=== PATIENT | female | born 1955 | race Caucasian/White ===

== ENCOUNTER 2016-08-26 17:59 | Emergency (ER) | payer SELFPAY ==
--- NOTE | 2016-08-26 19:51 | DIAGNOSTIC IMAGING REPORT ---
PROCEDURE: XR CHEST 1 VIEW INDICATION: Extremity weakness. History breast surgery. TECHNIQUE: Portable AP view (19 3 hours). COMPARISON: None. FINDINGS: Allowing for overlying wires and electrodes, lungs are clear. Heart and mediastinum are normal. Soft tissues of the thorax are normal and there is no evidence metal foreign body. Status post resection of the left distal clavicle. Thorax is otherwise normal. IMPRESSION: 1. Negative chest.
--- NOTE | 2016-08-26 19:58 | DIAGNOSTIC IMAGING REPORT ---
PROCEDURE: XR LUMBAR SPINE 2 OR 3 VIEWS INDICATION: LOWER EXTERMITY NUMBNESS TECHNIQUE: Three views. COMPARISON: None. FINDINGS: Osseous structures are osteopenic. There is marked lucency of the T12 vertebral body with loss of cortical margins. In addition, there is an adjacent 50% compression fracture of the L1 vertebral body. There are moderate degenerative changes of the lower lumbar facet joints. IMPRESSION: 1. Osteopenia. 2. Lucency of the T12 vertebral body with loss of cortical margins, with an adjacent 50% fracture of the L1 vertebral body. Findings suspicious for underlying pathologic neoplastic process. CT lumbar spine is recommended to further evaluate. 3. Findings discussed with Dr. Geoff Bill.
--- NOTE | 2016-08-26 20:37 | DIAGNOSTIC IMAGING REPORT ---
PROCEDURE: CT LUMBAR SPINE W/O CONTRAST INDICATION: Back pain. Lower extremity weakness. TECHNIQUE: Noncontrast axial images with sagittal and coronal reformations. COMPARISON: Comparison made radiographs of the lumbar spine earlier today (08/26/2016). FINDINGS: There is marked osteopenia of the osseous structures. Radiographs earlier today suggested a lytic lesion of the T12 vertebral body, although this appears to be a reflection of osteoporosis. There is a 50% subacute or old compression fracture of the L1 vertebral body. No evidence of canal compromise. L1-2: Mild facet disease. L2-3: Mild facet disease. L3-4: Mildly bulging disc and facet disease. L4-5: Mildly bulging disc with mild to moderate facet disease. L5-S1: Mild to moderate facet disease. Disc is normal. IMPRESSION: 1. Osteopenia with probable osteoporosis. 2. Mild to moderate degenerative changes of the lumbar spine. 3. No evidence of lytic lesion of the T12 vertebral bodies (as suggested on radiographs earlier today). 4. There is a 50% older subacute compression fracture of the L1 vertebral body. 5. No evidence of disc herniation and no evidence of canal compromise. 6. Findings discussed with Dr. Geoff Bill. All CT scans at this facility use dose modulation, iterative reconstruction, and/or weight-based dosing when appropriate to reduce radiation dose to as low as reasonably achievable.
--- NOTE | 2016-08-26 21:07 | ED CLINICAL REPORT ---
Clinical Report - Physicians/Mid Levels [facility] [address] [place] [address] 08/26/2016 18:00 Patient: CARYN TA I Time Seen: 18:27. Arrived- By private vehicle. Historian- patient. HISTORY OF PRESENT ILLNESS Chief Complaint: WEAKNESS and DIFFICULTY STANDING and WALKING. This started today and is still present. It was abrupt in onset and has been constant. The patient has had new onset of weakness of the right leg and left leg. She has had new onset of numbness of the right leg (moderate) and left leg (moderate). No impaired speech or swallowing or visual disturbance. She has had difficulty walking. Usually is alert and oriented X3. (she says that she will occasionally use a cane). She usually walks without assistance. (Patient reports that she took a nap this afternoon. Prior to that she was able to ambulate as she usually does. However, when she woke she said that her legs felt "numb" and that she has not been able to stand up. She has a history of chronic low back pain and has had prior surgery there and says that she has had an upper sacral fracture.). REVIEW OF SYSTEMS No chills, fever, sweats, calf pain or chest pain. No cough, difficulty breathing, pedal edema, palpitations or abdominal pain. No constipation, diarrhea, nausea, vomiting or urinary problems. The patient has had back pain (chronically). All systems otherwise negative, except as recorded above. PAST HISTORY ( Primary physician (Adalgisa)). Problems: Thyroid Disease. Abdominal Pain. Back Pain. Chronns. Gastroesophageal Reflux Disease. Additional Surgeries: "Stomach wrap for bleeding". Appendectomy. Back Surgery. Colonoscopy. Endometriosis . Medications: Triliptal 150mg day . Levoxyl Oral 50 mcg, daily. Oxycodone 5 mg 4 times a day . Allergies: Codeine. PCN. SOCIAL HISTORY Current every day light tobacco smoker (cigarette)- less than 1/2 a pack per day. No alcohol use or drug use. FAMILY HISTORY No significant family medical history. ADDITIONAL NOTES The nursing notes have been reviewed. PHYSICAL EXAM Vital Signs: 08/26/2016 18:20 BP: 105/60. HR: 52. RR: 18. O2 saturation: 99%. Temp: 97.4 F. Pain level now: 10/18. Appearance: Alert. Eyes: Pupils equal, round and reactive to light. ENT: Pharynx normal. Neck: Normal inspection. Neck supple. CVS: Bradycardia. Heart sounds normal. Respiratory: No respiratory distress. Breath sounds normal. Abdomen: Soft and nontender. No organomegaly. Back: Normal inspection. Rectal: Abnormal digital exam: (she had a normal perianal wink but mildly decreased anal sphincter tone. A female industrial controller was present during the exam). Extremities: Extremities exhibit normal ROM. No calf tenderness. No lower extremity edema. Neuro: Alert. Speech normal. Cranial nerves normal (as tested). No facial weakness. She has had localized weakness of the right leg (severe) and left leg (severe). Sensory deficit present. Altered sensation to light touch on the right and left leg. Altered sensation to pinprick on the left leg. LABS, X-RAYS, AND EKG EKG: Rate: 54. Left axis deviation. Prior EKG unavailable. The study has been independently viewed by me. LS-Spine X-rays: (IMPRESSION: 1. Osteopenia. 2. Lucency of the T12 vertebral body with loss of cortical margins, with an adjacent 50% fracture of the L1 vertebral body. Findings suspicious for underlying pathologic neoplastic process. CT lumbar spine is recommended to further evaluate.). The X-rays were interpreted contemporaneously by me and discussed with the radiologist. Chest X-ray: (IMPRESSION: 1. Negative chest.). The X-rays were interpreted by the radiologist and contemporaneously by me. CT L-Spine: Note- IMPRESSION: 1. Osteopenia with probable osteoporosis. 2. Mild to moderate degenerative changes of the lumbar spine. 3. No evidence of lytic lesion of the T12 vertebral bodies (as suggested on radiographs earlier today). 4. There is a 50% older subacute compression fracture of the L1 vertebral body. 5. No evidence of disc herniation and no evidence of canal compromise. The study was interpreted contemporaneously by me and discussed with the radiologist. Laboratory Tests: UA-Culture if indicated: (LISA: 08/26/2016 19:10) ( MsgRcvd 08/26/2016 19:47) Final results Test Result Flag Units (Reference) URINE COLOR YELLOW URINE APPEARANCE CLEAR URINE GLUCOSE NEGATIVE (NEGATIVE) URINE BILIRUBIN NEGATIVE (NEGATIVE) URINE KETONE NEGATIVE (NEGATIVE) URINE SPECIFIC GRAVITY 1.025 (1.010-1.030) URINE PH 6.0 (5.0-8.0) URINE PROTEIN NEGATIVE (NEGATIVE) URINE UROBILINOGEN 1.0 EU/dL (0.2-1.0) URINE NITRITE NEGATIVE (NEGATIVE) URINE BLOOD NEGATIVE (NEGATIVE) URINE LEUK ESTERASE NEGATIVE (NEGATIVE) URINE RBC RARE rbc/hpf (0-1) URINE WBC 0-1 wbc/hpf (0-1) URINE EPITHELIAL CELLS 0-1 EPI/hpf (0-5) URINE BACTERIA NONE SEEN (NONE SEEN) URINE COMMENT CULT NOT INDICATED URINE CULTURES ARE SET-UP BASED ON THE FOLLOWING CRITERIA:POSITIVE NITRITEPOSITIVE LEUKOCYTE ESTERASEGREATER THAN 10 WHITE BLOOD CELLSMODERATE (2+) OR GREATER BACTERIA CBC w Diff: (LISA: 08/26/2016 18:53) ( [facility] 08/26/2016 19:28) Final results Test Result Flag Units (Reference) WHITE BLOOD COUNT 3.5 L K/uL (4.5-11.5) RED BLOOD COUNT 4.55 M/uL (4.00-5.20) HEMOGLOBIN 13.3 gm/dL (12.0-16.0) HEMATOCRIT 39.4 % (36.0-46.0) MEAN CELL VOLUME 87 fL (80-100) MEAN CORPUSCULAR HGB 29 pg (26-34) MEAN CORPUSCULAR HGB CONC 34 g/dL (31-37) RED CELL DISTRIBUTION WIDTH 13.3 % (11.6-14.8) PLATELET COUNT 161 K/uL (150-400) LYMPH % 37.4 % (25-40) MONO % 3.2 % (3-14) GRANULOCYTE % 59.4 (53-90) CMP: (LISA: 08/26/2016 18:40) ( [facility] 08/26/2016 19:11) Final results Test Result Flag Units (Reference) GLUCOSE 89 mg/dL (70-110) BUN 14 mg/dL (7-18) CREATININE 0.8 mg/dL (0.6-1.3) Estimated GFR >60 mL/min Estimated GFR- >60 mL/min Note: Persistent reduction over 3 months in eGFR<60 mL/min/1.73 m2 defines CKD. Patients with eGFR values>=60 mL/min/1.73 m2 may also have CKD if evidence ofpersistent proteinuria. Additional information may be foundat www.[email or web address].org. SODIUM 141 mmol/L (136-145) POTASSIUM 4.1 mmol/L (3.5-5.1) CHLORIDE 105 mmol/L (98-107) CARBON DIOXIDE 31 mmol/L (21-32) CALCIUM 9.0 mg/dL (8.5-10.1) TOTAL PROTEIN 6.6 g/dL (6.4-8.2) ALBUMIN 3.5 g/dL (3.3-5.0) BILIRUBIN, TOTAL 0.5 mg/dL (0.0-1.0) ALKALINE PHOSPHATASE 87 U/L (46-116) AST (SGOT) 16 U/L (15-37) ALT (SGPT) 19 U/L (12-78) LIPASE 95 U/L (73-393) AMYLASE 34 U/L (25-115) CPK 38 U/L (24-260) TROPONIN I <0.05 ng/mL (0.00-1.5) TROPONIN REFERENCE RANGE:<0.1 NEGATIVE0.1-1.5 INDETERMINANT>1.5 POSITIVE . PROGRESS AND PROCEDURES Course of Care: I discussed the case with Dr. Brianna Sheridan at [place]. We initially tried to arrange for the patient to be evaluated at [facility] however they do not have MRI available this evening and they do not have a neurologic service available. Dr. Sheridan has agreed to accept the patient in transfer to the [place] emergency room for further evaluation and treatment of the patient. Patient/family counseled. Old medical records reviewed. Disposition: Transferred. CLINICAL IMPRESSION Acute weakness of the right lower extremity and left lower extremity. (Electronically signed by Geoff Bill MD 08/28/2016 9:49)
--- NOTE | 2016-08-26 21:07 | ED NURSING NOTES ---
Clinical Report - Nurses [facility] [address] [place] [address] 08/26/2016 18:00 Patient: CARYN TA I TRIAGE Acuity: LEVEL 3. Chief Complaint: WEAKNESS, NAUSEA and BACK PAIN. Alert. No acute distress. SEPSIS SCREEN: Sepsis Screen. Negative (no infection suspected/documented). --18:26 Rachna Nava R.N. 18:20 08/26/16. BP: 105/60. HR: 52. RR: 18. O2 saturation: 99% on room air. Temp: 97.4 F (oral). Pain level now: 10/18. --18:26 Rachna Nava R.N. Weight: 60.7 kg stated. Height/Length: 65 inches Per Patient. BMI: 22.3. --18:24 Rachna Nava R.N. Medications Oxycodone 5 mg 4 times a day . --18:21 Rachna Nava R.N. Levoxyl Oral 50 mcg, daily. --18:21 Rachna Nava R.N. Triliptal 150mg day . --18:21 Rachna Nava R.N. Medication/allergy information source: the patient. --18:26 Rachna Nava R.N. Allergies Codeine. PCN. --18: Rachna Nava R.N. History Arrived by private vehicle, and accompanied by spouse. Primary physician (Adalgisa). This started today. ( Pt reports she woke up this afternoon and is unable to move her legs. Pt states she was able to walk normally before she went to sleep.). Treatment ASSISTANT SURVEYOR: None. PAST MEDICAL HX: Immunizations: up-to-date. The patient is post-menopausal. SOCIAL HX: Current every day light tobacco smoker- less than 1/2 a pack per day. No alcohol use or drug use. NUTRITIONAL RISK ASSESSMENT: The nutritional risk assessment revealed no deficiencies. FUNCTIONAL ASSESSMENT: Functional assessment: no impairments noted. LEARNING NEEDS ASSESSMENT: The learning needs assessment revealed no barriers. FALL RISK ASSESSMENT: Fall risk assessment completed. Risk factors identified include patient impairment of mobility. Fall interventions initiated. Side rails up x2. Brakes on Bed in low position. Call light in reach of patient. SKIN INTEGRITY ASSESSMENT: Skin integrity risk assessment completed. No skin integrity risk identified. --18 Rachna Nava R.N. PROBLEMS: Thyroid Disease. Abdominal Pain. Back Pain. Chronns. Gastroesophageal Reflux Disease. --18: Rachna Nava R.N. ADDITIONAL SURGERIES: "Stomach wrap for bleeding". Appendectomy. Back Surgery. Colonoscopy. Endometriosis . --18: Rachna Nava R.N. Assessment GENERAL / NEURO / PSYCH: Alert. Oriented X 4. Appears in no acute distress. Mia Coma Scale: 15- eyes open spontaneously (4); best verbal response- oriented x 4 (5); best motor response- obeys commands (6). Patient appears calm and cooperative. RESPIRATORY: Respirations not labored. CVS: Capillary refill less than 2 seconds. GI / : Abdomen soft and nontender. SKIN: Mucous membranes are pink. Skin is warm and dry. --18: Rachna Nava R.N. Interventions ID band on patient. To treatment room. --18: Rachna Nava R.N. PHYSICAL ASSESSMENT 18:08/26/16. Ambulatory to room. GENERAL / NEURO / PSYCH: Alert. Oriented X 4. Appears in no acute distress. HEENT: Pupils equal, round and reactive to light. No facial asymmetry noted. Mucous membranes are pink. RESPIRATORY: Respirations not labored. CVS: Capillary refill less than 2 seconds. Pulses within normal limits. GI / : Abdomen soft and nontender. SKIN: Skin intact. Skin is warm and dry. Normal skin turgor. --18: Rachna Nava R.N. NURSING PROGRESS NOTES 18:08/26/16. Patient gowned. Two patient identifiers checked. Call light placed in reach. Side rails up x 2. Bed placed in lowest position. Brakes of bed on. Patient ready for evaluation- chart flagged and ED physician and ORNAMENTAL IRON WORKER APPRENTICE notified. --18: Rachna Nava R.N. EKG time: (1835). EKG was ordered, performed by a tech and shown to the ED physician. --18:38 Farrah Mondragon 18:40 08/26/2016 Site #1 started via IV in the right forearm with an 20g angiocath, with aseptic technique and good blood return; one attempt. Blood drawn: rainbow set. Labeled in the presence of the patient and sent to the lab. Saline lock flushed with 10 mL saline. --18:40 Rachna Nava R.N. 19:16 08/26/16. In/out catheterization. During procedure hand hygiene observed and sterile equipment and aseptic technique used. Return of yellow-colored clear urine. She tolerated procedure well. Checked patient name and birthdate: patient confirmed. Catheterized urine collected with return of yellow-colored clear urine; sample sent to lab for urinalysis. Specimen labeled in the presence of the patient. --19:16 Rachna Nava R.N. 19:17 08/26/16. Care transferred and report given (Trini, ED RN). --19:17 Rachna Nava R.N. 19:55 08/26/16. --19:55 Trini Lopez 19:52 08/26/16. BP: 107/72. HR: 52. RR: 20. O2 saturation: 100%. Pain level now: 10/18. --19:55 Trini Lopez 19:25. Decorator Consultant provided for the breast exam by the physician. --19:57 Connie Garces ( Provider at bedside discussing plan of care with patient and spouse). --20:03 Trini Lopez 20:59 08/26/16. BP: 106/74. HR: 60. RR: 20. O2 saturation: 100% on room air. Pain level now: 10/18. --20:59 Trini Lopez 21:15 08/26/16. BP: 120/76. HR: 58. RR: 20. O2 saturation: 100%. Pain level now: 08/18. --21:16 Trini Lopez ( patient assisted up to bedside commode, patient having difficulty bearing weight). --21:30 Trini Lopez. DISPOSITION / DISCHARGE 21:34 08/26/16. BP: 120/66. HR: 55. RR: 20. O2 saturation: 100%. Temp: 98.8 F (oral). Pain level now: 10/18. --21:36 Trini Lopez Condition at departure: stable. The goals identified in the patient's plan of care were met. Fall risk assessment completed. Risk factors identified include patient impairment of mobility. Fall interventions initiated. Patient placed on stretcher. Side rails up x1. Brakes on Bed in low position. Family at bedside. Call light in reach of patient and family. Instructed not to get up without assistance. Transferred to [facility]. Summary of care provided to transport team and transfer facility. Transported via stretcher by transport team. Report was given to a nurse via a phone call. Report included patient's care, treatment, medications, reviewed medication reconcilliation, and condition (including any recent changes or anticipated changes). All questions were answered. Report was acknowledged and care was transferred. Patient's personal items; items were transported with the patient. --21:36 Trini Lopez 21:36 08/26/2016 Site #[address] upon transfer; patent, no pain and no signs of infection or infiltration. Flushed with 10 mL saline; flushes easily. --21:36 Trini Lopez ( Family and patient aware of plan of care.). --21:36 Trini Lopez Departure time: 21:45 Aug 26 2016. --21:45 Trini Lopez. Locked/Released at 08/27/2016 4:05 by Trini Lopez,
--- NOTE | 2016-08-26 21:07 | ED ORDER SUMMARY ---
..... Patient: CARYN TA I OrderSheet [facility] VisitID: [id number] [place] [address] 60y, F Registration Date/Time: 08/26/2016 ORDER SHEET Weight: 60.7 kg (stated) Allergies: Codeine, PCN GENERAL ORDERS: Russian Language Professor (Continuous) (18:28 08/26/2016 Ameena HAYNES) (Ack 18:30 AMcQuoid ER Tech1) (18:42 MWinterer R.N.) Chest 1V Urgent (18:08/26/2016 Ameena HAYNES) (Ack 18:30 AMcQuoid ER Tech1) (19:43 RFay) CBC w Diff Urgent (18:08/26/2016 Ameena HAYNES) (Ack 18:30 AMcQuoid ER Tech1) (18:42 MWinterer R.N.) CMP Urgent (18:08/26/2016 Ameena HAYNES) (Ack 18:30 AMcQuoid ER Tech1) (18:42 MWinterer R.N.) UA-Culture if indicated Urgent (18:08/26/2016 Ameena HAYNES) (Ack 18:30 AMcQuoid ER Tech1) (19:15 MWinterer R.N.) Amylase Urgent (18:08/26/2016 Ameena HAYNES) (Ack 18:30 AMcQuoid ER Tech1) (18:42 MWinterer R.N.) Lipase Urgent (18:08/26/2016 Ameena HAYNES) (Ack 18:30 AMcQuoid ER Tech1) (18:42 MWinterer R.N.) CPK Urgent (18:29 08/26/2016 Ameena HAYNES) (Ack 18:30 AMcQuoid ER Tech1) (18:42 MWinterer R.N.) Troponin-I Urgent (18:08/26/2016 Ameena HAYNES) (Ack 18:30 AMcQuoid ER Tech1) (18:42 MWinterer R.N.) Oxygen (2 L/min) (NC) (18:29 08/26/2016 Ameena HAYNES) (Ack 18:30 AMcQuoid ER Tech1) (18:42 MWinterer R.N.) Pulse oximeter (18:29 08/26/2016 Ameena HAYNES) (Ack 18:30 AMcQuoid ER Tech1) (18:42 MWinterer R.N.) EKG - ER Stat (18:29 08/26/2016 Ameena HAYNES) (Ack 18:30 AMcQuoid ER Tech1) (18:37 OHernandez) Lumbar Spine 2 or 3V Urgent (18:31 08/26/2016 Ameena HAYNES) (Ack 18:31 AMcQuoid ER Tech1) (19:43 RFay) CT Lumbar Spine wo Cont Urgent (19:57 08/26/2016 Ameena HAYNES) (Ack 19:59 AMcQuoid ER Tech1) (20:16 AMcQuoid ER Tech1) MEDICATION ORDERS: IV FLUIDS: IV Saline Lock (18:29 08/26/2016 Ameena HAYNES) (18:42 MWinterer R.N.) ORDER SHEET NOTES: [Electronically signed by Trini Lopez (04:05 08/27/2016)] [Electronically signed by Geoff Bill MD (09:49 08/28/2016)] [Electronically locked/signed by Trini Lopez (04:05 08/27/2016)]
--- NOTE | 2016-08-26 21:07 | ED ORDER SUMMARY ---
..... Patient: CARYN TA I OrderSheet [facility] VisitID: [id number] [place] [address] 60y, F Registration Date/Time: 08/26/2016 ORDER SHEET Weight: 60.7 kg (stated) Allergies: Codeine, PCN GENERAL ORDERS: Studio Control Operator (Continuous) (18:28 08/26/2016 Ameena HAYNES) (Ack 18:30 AMcQuoid ER Tech1) (18:42 MWinterer R.N.) Chest 1V Urgent (18:08/26/2016 Ameena HAYNES) (Ack 18:30 AMcQuoid ER Tech1) (19:43 RFay) CBC w Diff Urgent (18:08/26/2016 Ameena HAYNES) (Ack 18:30 AMcQuoid ER Tech1) (18:42 MWinterer R.N.) CMP Urgent (18:08/26/2016 Ameena HAYNES) (Ack 18:30 AMcQuoid ER Tech1) (18:42 MWinterer R.N.) UA-Culture if indicated Urgent (18:08/26/2016 Ameena HAYNES) (Ack 18:30 AMcQuoid ER Tech1) (19:15 MWinterer R.N.) Amylase Urgent (18:08/26/2016 Ameena HAYNES) (Ack 18:30 AMcQuoid ER Tech1) (18:42 MWinterer R.N.) Lipase Urgent (18:08/26/2016 Ameena HAYNES) (Ack 18:30 AMcQuoid ER Tech1) (18:42 MWinterer R.N.) CPK Urgent (18:29 08/26/2016 Ameena HAYNES) (Ack 18:30 AMcQuoid ER Tech1) (18:42 MWinterer R.N.) Troponin-I Urgent (18:08/26/2016 Ameena HAYNES) (Ack 18:30 AMcQuoid ER Tech1) (18:42 MWinterer R.N.) Oxygen (2 L/min) (NC) (18:29 08/26/2016 Ameean HAYNES) (Ack 18:30 AMcQuoid ER Tech1) (18:42 MWinterer R.N.) Pulse oximeter (18:29 08/26/2016 Ameena HAYNES) (Ack 18:30 AMcQuoid ER Tech1) (18:42 MWinterer R.N.) EKG - ER Stat (18:29 08/26/2016 Ameena HAYNES) (Ack 18:30 AMcQuoid ER Tech1) (18:37 OHernandez) Lumbar Spine 2 or 3V Urgent (18:31 08/26/2016 Ameena HAYNES) (Ack 18:31 AMcQuoid ER Tech1) (19:43 RFay) CT Lumbar Spine wo Cont Urgent (19:57 08/26/2016 Ameena HAYNES) (Ack 19:59 AMcQuoid ER Tech1) (20:16 AMcQuoid ER Tech1) MEDICATION ORDERS: IV FLUIDS: IV Saline Lock (18:29 08/26/2016 Ameena HAYNES) (18:42 MWinterer R.N.) ORDER SHEET NOTES: [Electronically signed by Trini Lopez (04:05 08/27/2016)] [Electronically signed by Geoff Bill MD (09:49 08/28/2016)] [Electronically locked/signed by Trini Lopez (04:05 08/27/2016)]
--- NOTE | 2016-08-28 09:49 | ED MAR SUMMARY ---
..... Medication Administration Record [facility] [address] [place], [place] [id number] Patient: CARYN TA I Visit ID: [id number] 60y, F Weight: 60.7 kg Height/Length: 65 in BMI: 22.3 ALLERGIES: Codeine, PCN
--- NOTE | 2016-08-28 09:49 | ED MED RECONCILIATION SUMMARY ---
Patient: CARYN TA I Medication Reconciliation Report [facility] VisitID: [id number] [address] [place] [address] 60y, F Registration Date/Time: 08/26/2016 Weight: 60.7 kg Height/Length: 65 in. BMI: 22.3 ALLERGIES: Codeine, PCN The patient's Home Medications are listed below: THE FOLLOWING MEDICATIONS NEED TO BE RECONCILED: Levoxyl Oral 50 mcg, daily Oxycodone 5 mg 4 times a day Triliptal 150mg day The source(s) of the original Home Medication information: patient The following Medications were given to the patient in the Emergency Department: None. The following Medications were prescribed to the patient: None.
--- NOTE | 2016-08-28 09:49 | ED MAR SUMMARY ---
..... Medication Administration Record [facility] [address] [place], [place] [id number] Patient: CARYN TA I Visit ID: [id number] 60y, F Weight: 60.7 kg Height/Length: 65 in BMI: 22.3 ALLERGIES: Codeine, PCN
--- NOTE | 2016-08-28 09:49 | ED DISCHARGE INSTRUCTIONS ---
Patient: CARYN TA I General Instructions [facility] VisitID: [id number] [place] [address] 60y, F Registration Date/Time: 08/26/2016 Acute weakness of the right lower extremity and left lower extremity. ADDITIONAL INFORMATION Weakness [Uncertain Cause] Based on your exam today, the exact cause of your weakness is not certain. However, your weakness does not seem to be a sign of a serious illness at this time. Sometimes the signs of a serious illness take more time to appear. Therefore, please watch for the warning signs listed below. Home Care: 1) Rest at home today. Do not over-exert yourself. 2) Take your medicine as prescribed. 3) For the next few days, drink extra fluids (unless your doctor wants you to restrict fluids for other reasons). Do not skip meals. Follow Up with your doctor or as advised if you are not starting to feel better within TWO days. Get Prompt Medical Attention if any of the following occur: Worsening of your symptoms Chest, arm, neck, jaw or upper back pain Dizziness or fainting Trouble breathing Unable to eat or drink normal amounts Nausea, frequent vomiting, frequent diarrhea Abdominal pain Numbness or weakness of the face, one arm or one leg Slurred speech, confusion, trouble speaking, walking or seeing Blood in vomit or stool (black or red color) Fever of 100.4 F (38 C) or higher, or as directed by your healthcare provider You have been given the following additional information: Weakness, Unk Cause (Electronically signed by Geoff Bill MD 08/28/2016 9:49)
--- NOTE | 2016-08-28 09:49 | ED DISCHARGE INSTRUCTIONS ---
Patient: CARYN TA I General Instructions Located Within [facility] VisitID: [id number] [place] [address] 60y, F Registration Date/Time: 08/26/2016 Acute weakness of the right lower extremity and left lower extremity. ADDITIONAL INFORMATION Weakness [Uncertain Cause] Based on your exam today, the exact cause of your weakness is not certain. However, your weakness does not seem to be a sign of a serious illness at this time. Sometimes the signs of a serious illness take more time to appear. Therefore, please watch for the warning signs listed below. Home Care: 1) Rest at home today. Do not over-exert yourself. 2) Take your medicine as prescribed. 3) For the next few days, drink extra fluids (unless your doctor wants you to restrict fluids for other reasons). Do not skip meals. Follow Up with your doctor or as advised if you are not starting to feel better within TWO days. Get Prompt Medical Attention if any of the following occur: Worsening of your symptoms Chest, arm, neck, jaw or upper back pain Dizziness or fainting Trouble breathing Unable to eat or drink normal amounts Nausea, frequent vomiting, frequent diarrhea Abdominal pain Numbness or weakness of the face, one arm or one leg Slurred speech, confusion, trouble speaking, walking or seeing Blood in vomit or stool (black or red color) Fever of 100.4 F (38 C) or higher, or as directed by your healthcare provider You have been given the following additional information: Weakness, Unk Cause (Electronically signed by Geoff Bill MD 08/28/2016 9:49)
--- NOTE | 2016-08-28 09:49 | ED MED RECONCILIATION SUMMARY ---
Patient: CARYN TA I Medication Reconciliation Report [facility] VisitID: [id number] [address] [place] [address] 60y, F Registration Date/Time: 08/26/2016 Weight: 60.7 kg Height/Length: 65 in. BMI: 22.3 ALLERGIES: Codeine, PCN The patient's Home Medications are listed below: THE FOLLOWING MEDICATIONS NEED TO BE RECONCILED: Levoxyl Oral 50 mcg, daily Oxycodone 5 mg 4 times a day Triliptal 150mg day The source(s) of the original Home Medication information: patient The following Medications were given to the patient in the Emergency Department: None. The following Medications were prescribed to the patient: None.
== END 2016-08-26 21:45 | disposition short-term general hospital (02) ==
LOC: ED SRH 17:59
DX: R53.1 Weakness (principal); K21.9 Gastro-esophageal reflux disease without esophagitis; F17.210 Nicotine dependence, cigarettes, uncomplicated; Z88.0 Allergy status to penicillin; Z88.5 Allergy status to narcotic agent; Z79.899 Other long term (current) drug therapy
CPT/HCPCS: 81460; 90004; 90074; 90100; 90616; 92235; 92530; 92610; 95059